=== PATIENT | female | born 1945 | race African-American/Black ===

== ENCOUNTER 2024-11-05 15:17 | Inpatient (IN) | payer OTHER, MEDICARE ==
[~2024-11-05] VITALS: Ht 167.6 cm; Wt 95.7 kg
[2024-11-05 15:21] VITALS: O2SAT 98
[2024-11-05] MEDS: SODIUM CHLORIDE 0.9% 1,000 ML IV ONE (16:11)
[2024-11-05] MEDS ORDERED: IOHEXOL-350 100 ML BOTTLE ONE (17:15)
[2024-11-05 17:34] LABS: INR 1.3
[2024-11-05 17:38] LABS: TROPONIN I HIGH SENSITIVITY 4 ng/L (3.0-34)
[2024-11-05 17:40] LABS: CREATININE 1.2 mg/dL (0.6-1.0); UREA NITROGEN BLOOD 13 mg/dL (9-23)
[2024-11-05 17:41] LABS: ETHANOL BLOOD < 10 mg/dL (<10); T4 FREE 1.33 ng/dL (0.89-1.76)
[2024-11-05 17:42] LABS: ASPARTATE AMINOTRANSFERASE 29 IU/L (<34); BASOPHILS % 0.9 % (0.0-2.0); BILIRUBIN DIRECT 0.4 mg/dL (<=3.0); BILIRUBIN TOTAL 1.3 mg/dL (0.1-1.0); EOSINOPHILS % 1.1 % (0.0-5.0); HEMATOCRIT. 50.8 % (36.0-48.0); HEMOGLOBIN. 15.6 g/dL (12.0-16.0); LYMPHOCYTES % 24.4 % (20.0-50.0); MEAN PLATELET VOLUME 8.4 fl (7.4-10.4); MONOCYTES % 6.8 % (2.0-8.0); NEUTROPHILS % 66.8 % (40.0-76.0); PLATELET 327 x1000/uL (130-400); RED BLOOD CELL COUNT 6.01 mill/uL (4.2-5.4); RED CELL DISTRIBUTION WIDTH 17.2 % (11.6-14.6)
[2024-11-05 17:43] LABS: PROTEIN TOTAL 6.3 g/dL (6.0-8.3)
[2024-11-05 20:00] VITALS: BP 133/71; PULSE 91; RESP 20; TEMP 36.4; O2SAT 96
[2024-11-05] MEDS ORDERED: ATOR40TA70 PO (21:51)
[2024-11-05] MEDS ORDERED: RIVA20TA PO (21:51)
[2024-11-05] MEDS ORDERED: METO25TA6 PO (21:51)
[2024-11-05] MEDS ORDERED: DONE10TA43 PO (21:51)
[2024-11-05] MEDS ORDERED: APIX2.5T PO (21:51)
[2024-11-05] MEDS ORDERED: MAGNESIUM/ALUMINUM HYDROXIDE/SIMETHICONE 30ML UDC PO PRN (22:00)
[2024-11-05] MEDS: METOPROLOL TARTRATE 25MG TABLET PO SCH (22:00)
[2024-11-05] MEDS ORDERED: ACETAMINOPHEN 325MG TABLET PO PRN (22:00)
[2024-11-05] MEDS ORDERED: DOCUSATE SODIUM 100MG CAPSULE PO PRN (22:00)
[2024-11-05] MEDS: APIXABAN 2.5 MG TABLET PO SCH (22:16)
[2024-11-06] VITALS (8 sets, daily range): BP systolic 102–135; BP diastolic 57–78; PULSE 80–100; RESP 18–21; TEMP 36.2–36.6; O2SAT 95–100
[2024-11-06 01:45] LABS: TROPONIN I HIGH SENSITIVITY 4 ng/L (3.0-34)
[2024-11-06 08:44] LABS: TROPONIN I HIGH SENSITIVITY 5 ng/L (3.0-34)
[2024-11-06 08:46] LABS: TRIGLYCERIDE 66.0 mg/dL (0-150)
[2024-11-06 08:47] LABS: LDL CHOLESTEROL 53.0 mg/dL (5-100)
[2024-11-06 09:01] LABS: VITAMIN B12 SERUM > 2000 pg/mL (211-911)
[2024-11-06] MEDS: ATORVASTATIN CALCIUM 40MG TABLET PO SCH (09:28)
[2024-11-06] MEDS ORDERED: IOHEXOL-350 100 ML BOTTLE ONE (14:05)
[2024-11-06] MEDS: RIVAROXABAN 20 MG TABLET PO SCH (17:16)
[2024-11-06] MEDS: DONEPEZIL HCL 10MG TABLET PO SCH (21:04)
== END 2024-11-06 21:45 | disposition short-term general hospital (02) | DRG 70 ==
LOC: ER 15:17 → 8WST 18:16 → ENRESERV 19:04
PROVIDERS: ADMIT Internal Medicine Pulmonary Disease; ATTEND Internal Medicine Pulmonary Disease
DX: G93.40 Encephalopathy, unspecified (principal); N17.0 Acute kidney failure with tubular necrosis; I13.0 Hypertensive heart and chronic kidney disease with heart failure and stage 1 through stage 4 chronic kidney disease, or unspecified chronic kidney disease; F03.90 Unspecified dementia, unspecified severity, without behavioral disturbance, psychotic disturbance, mood disturbance, and anxiety; I48.91 Unspecified atrial fibrillation; I50.9 Heart failure, unspecified; N18.9 Chronic kidney disease, unspecified; Z79.01 Long term (current) use of anticoagulants; Z79.899 Other long term (current) drug therapy; I95.9 Hypotension, unspecified
CPT/HCPCS: 36415; 70496; 70498; 70551; 71045; 71275; 80048; 80061; 80076; 80320; 82607; 83880; 84439; 84443; 84484; 85025; 85379; 93005; 97162; 97166; 97530; 99285; J7030; Q9967; G0480